=== PATIENT | male | born 1950 | race Caucasian/White ===

== ENCOUNTER 2020-05-21 00:33 | Day surgery (SDC) | payer MEDICARE ==
[~2020-05-21 00:33] MED LIST: ATOR10 PO; CITA10S PO; ENAL5 PO; GLYMET5 PO; IBUP800 PO; PROP10 PO
[2020-05-21] MEDS ORDERED: THERA-D2000 UNIT PO (15:12)
[2020-05-21] MEDS ORDERED: GLIM4 PO (15:13)
[2020-05-21] MEDS ORDERED: SITA100T2 PO (15:14)
[2020-05-21] MEDS ORDERED: CYCL10 PO (15:32)
[2020-05-21] MEDS ORDERED: CITA20 PO (15:33)
[2020-05-21] MEDS ORDERED: METF500 PO (15:34)
[2020-05-21] MEDS ORDERED: ATOR10 PO (15:35)
[2020-05-21] MEDS ORDERED: PIOG30 PO (15:38)
[2020-05-21] MEDS ORDERED: ENAL10 PO (15:38)
[2020-05-21] MEDS ORDERED: IBUP800 PO (15:38)
--- NOTE | 2020-05-21 15:43 | NUR ---
IV PLACED AT DR. MILLER'S OFFICE THIS MORNING.
== END 2020-05-21 17:50 | disposition home or self-care (01) ==
LOC: ATC 00:33
DX: D69.6 Thrombocytopenia, unspecified (principal); E11.9 Type 2 diabetes mellitus without complications; F17.200 Nicotine dependence, unspecified, uncomplicated; Z79.84 Long term (current) use of oral hypoglycemic drugs; Z88.0 Allergy status to penicillin
CPT/HCPCS: 36415; 36430; 86850; 86900; 86901; 86923; J7050; P9016

== ENCOUNTER 2020-06-09 10:26 | Observation (INO) | payer MEDICARE ==
[~2020-06-09] VITALS: Ht 175.3 cm; Wt 118.3 kg
[~2020-06-09 10:26] MED LIST changes: +CITA20 PO; +CYCL10 PO; +ENAL10 PO; -ENAL5 PO; +GLIM4 PO; +METF500 PO; +PIOG30 PO; +SITA100T2 PO; +THERA-D2000 UNIT PO
[2020-06-09 11:30] LABS: Hemoglobin 7.7 g/dL (13.5-17.5); Mean Corpuscular HGB 31.6 pg (26.0-34.0); Mean Corpuscular HGB Conc 33.5 g/dL (31.5-36.5); Mean Corpuscular Volume 94 fL (80-100); Mean Platelet Volume 10.3 fL (9.1-12.4); NRBC ABSOLUTE 0.25 K/mm3 (0.00-0.02); NRBC Auto 8.9 /100 WBC (0.0-0.2); RDW Coefficient Variation 18.5 % (11.7-14.2); RDW Standard Deviation 55.8 fL (35.1-46.3); Red Blood Cell Count 2.44 M/mm3 (4.30-5.90)
[2020-06-09 11:34] LABS: Alanine Aminotransfer (ALT/SGP 18 U/L (12-78); Albumin, Blood 3.5 g/dL (3.4-5.0); Albumin/Globulin Ratio 1.1 (0.8-1.8); Alk Phos 84 U/L (50-136); Anion Gap 8 mmol/L (6-16); Aspartate Aminotrans (AST/SGOT 14 U/L (12-37); Bilirubin, Total 1.5 mg/dL (0.1-1.0); Blood Urea Nitrogen 19 mg/dL (8-24); Bun/Creatinine Ratio 24.1 (12.0-20.0); CO2, Blood 22 mmol/L (21-32); Calcium, Blood 8.2 mg/dL (8.5-10.1); Chloride, Blood 101 mmol/L (98-108); Creatinine, Blood 0.79 mg/dL (0.60-1.20); Globulin, Blood 3.2 g/dL (2.2-4.0); Glomerular Filtration Rate >60 (60-); Glucose, Blood 266 mg/dL (70-99); Potassium, Blood 4.6 mmol/L (3.5-5.5); Sodium, Blood 131 mmol/L (136-145); Total Protein, Blood 6.7 g/dL (6.4-8.2); Troponin I <0.015 ng/mL (0.000-0.040)
[2020-06-09 11:37] LABS: Platelet Count 33 K/mm3 (150-400)
[2020-06-09 11:43] LABS: BAND PERCENT MAN 8 % (0-8); BASOPHILS ABSOLUTE MAN 0.02 K/mm3 (0.00-0.23); BASOPHILS PERCENT MAN 1 % (0-2); EOSINOPHILS PERCENT MAN 0 % (0-6); LYMPHOCYTES ABSOLUTE MAN 1.42 K/mm3 (0.84-5.20); LYMPHOCYTES PERCENT MAN 51 % (21-46); MONOCYTES ABSOLUTE MAN 0.02 K/mm3 (0.16-1.47); MONOCYTES PERCENT MAN 1 % (4-13); MYELOCYTE ABSOLUTE MAN 0.02 K/mm3 (0.00-0.00); MYELOCYTE PERCENT MAN 1 % (0-0); NEUTROPHILS ABSOLUTE MAN 1.28 K/mm3 (1.96-9.15); SEG NEUTROPHILS PERCENT MAN 38 % (41-73); TOTAL CELLS COUNTED 100
[2020-06-09] MEDS ORDERED: PEPCID40 MG PO (17:11)
--- NOTE | 2020-06-09 19:34 | NUR ---
END OF SHIFT SUMMARY: PATIENT ARRIVED TO UNIT ABOUT 18:15. REPORT RECEIVED FROM ALEXANDREA MCHUGH IN ED. PATIENT ALERT AND ORIENTED X4. PATIENT ACCOMPANIED BY HIS . PATIENT HAS MARKED SOB WITH EXERTION. PATIENT AND REPORT INCREASING WEAKNESS RELATED TO CHEMO AND LEUKEMIA. PATIENT REPORTS LAST CHEMO WAS LAST TUESDAY (06/05/20). PATIENT REPORTS THAT TOMORROW HE IS SUPPOSED TO HAVE A STRESS TEST. NO ORDER PLACED YET. NOTIFIED MANAGER STRATEGIC ALLIANCES RN. PATIENT AWARE OF CAFFEINE RESTRICTION AND NPO STATUS STARTING TONIGHT. PATIENT DENIES CHEST PAIN, TIGHTNESS OR DISCOMFORT AT THIS TIME. PATIENT DENIES NUMBNESS IN UPPER EXTREMITIES. PATIENT RESTING COMFORTABLY IN THE BED. NO APPARENT SIGNS OF DISTRESS OR DISCOMFORT.
--- NOTE | 2020-06-10 05:50 | NUR ---
SHIFT SUMMARY: VSS. AFEB. AAOX4. ABLE TO COMMUNICATE NEEDS. MEDX1 OVERNIGHT FOR HEADACHE. PT DENIES CHEST PAIN OR SOB. PT STATES CHEST PAIN AND EXERTIONAL DYSPNEA ONLY OCCUR W/ ACTIVITY. HAS REMAINED ON BEDREST OVERNIGHT. CURRENTLY NPO IN PREPARATION FOR POSSIBLE STRESS TEST TODAY. NO ACUTE OVERNIGHT EVENTS. WCTM.
[2020-06-10 07:24] LABS: Hematocrit 21.8 % (37.0-53.0); Hemoglobin 7.3 g/dL (13.5-17.5); Mean Corpuscular HGB 31.5 pg (26.0-34.0); Mean Corpuscular HGB Conc 33.5 g/dL (31.5-36.5); Mean Corpuscular Volume 94 fL (80-100); Mean Platelet Volume 10.6 fL (9.1-12.4); NRBC ABSOLUTE 0.26 K/mm3 (0.00-0.02); NRBC Auto 10.8 /100 WBC (0.0-0.2); RDW Coefficient Variation 18.8 % (11.7-14.2); RDW Standard Deviation 55.8 fL (35.1-46.3); Red Blood Cell Count 2.32 M/mm3 (4.30-5.90); White Blood Cell Count 2.41 K/mm3 (4.00-11.30)
[2020-06-10 07:30] LABS: Platelet Count 28 K/mm3 (150-400)
--- NOTE | 2020-06-10 10:28 | NUR ---
PT HAVING RESTING PORTION OF STRESS TEST TODAY, GOING DOWN FOR PICTURES NOW
--- NOTE | 2020-06-10 17:31 | NUR ---
SUMMARY PT RESTING IN BED QUIETLY, WAKES EASILY, PT HAD THE RESTING PORTION OF THE STRESS TEST TODAY, VICK WELL, SPOUSE HAS BEEN IN TO VISIT, PT HAS DENIED ANY CHEST PAIN T/O THE DAY, PLAN FOR STRESS PORTION OF TEST TOMORROW MORNING, PT TO HAVE NO CAFFEINE AFTER 8PM AND NPO AFTER 3 AM, PER [facility], PLAN FOR TEST AROUND 7:30 AM, PT HOPEFUL TO GO HOME AFTER TEST, WILL CONT TO MONITOR
[2020-06-11 05:19] LABS: Hematocrit 21.4 % (37.0-53.0); Hemoglobin 7.2 g/dL (13.5-17.5); Mean Corpuscular HGB 31.9 pg (26.0-34.0); Mean Corpuscular HGB Conc 33.6 g/dL (31.5-36.5); Mean Corpuscular Volume 95 fL (80-100); Mean Platelet Volume 11.1 fL (9.1-12.4); NRBC ABSOLUTE 0.25 K/mm3 (0.00-0.02); NRBC Auto 9.4 /100 WBC (0.0-0.2); RDW Coefficient Variation 19.4 % (11.7-14.2); RDW Standard Deviation 56.6 fL (35.1-46.3); Red Blood Cell Count 2.26 M/mm3 (4.30-5.90); White Blood Cell Count 2.66 K/mm3 (4.00-11.30)
[2020-06-11 05:28] LABS: Platelet Count 27 K/mm3 (150-400)
[2020-06-11 05:34] LABS: Anion Gap 5 mmol/L (6-16); Blood Urea Nitrogen 17 mg/dL (8-24); Bun/Creatinine Ratio 25.6 (12.0-20.0); CO2, Blood 26 mmol/L (21-32); Calcium, Blood 8.2 mg/dL (8.5-10.1); Chloride, Blood 102 mmol/L (98-108); Creatinine, Blood 0.66 mg/dL (0.60-1.20); Glomerular Filtration Rate >60 (60-); Glucose, Blood 197 mg/dL (70-99); Potassium, Blood 4.2 mmol/L (3.5-5.5); Sodium, Blood 133 mmol/L (136-145)
--- NOTE | 2020-06-11 06:38 | NUR ---
SHIFT SUMMARY PT IS A 69 Y/O MALE, ADMITTED FOR CP. HE IS A&O X 4, INDEPENDENT IN THE ROOM. NO C/O CHEST PAIN OR PRESSURE, SOB OR NAUSEA. TELE SHOWED NSR/ST IN THE 90-100S. VITAL SIGNS STABLE. PT NPO SINCE 0300 FOR SECOND HALF OFF STRESS TEST THIS AM. NO ACUTE CHANGES IN PT CONDITION NOTED. WILL CONTINUE TO MONITOR AND TREAT PER EMAR UNTIL HAND OFF TO DAY SHIFT RN.
--- NOTE | 2020-06-11 17:15 | NUR ---
SUMMARY PT RESTING IN BED VISITING WITH HIS , PT HAD A STRESS TEST TODAY, IT WAS ABNORMAL, CARDIOLOGY HAS BEEN CONSULTED, PLAN TO GIVE 2 UNITS PRBCS AND POSSIBLE ANGIO OUTPATIENT, PT HAS BEEN PLEASANT AND COOPERATIVE WITH CARE, UP TO THE SHOWER WITH ASSISTANCE, PT HAS DYSPNEA WITH ANY ACTIVITY, VSS, WILL CONTINUE TO MONITOR
--- NOTE | 2020-06-11 18:36 | NUR ---
1ST UNIT OF PRBCS STARTED
--- NOTE | 2020-06-12 | NUR ---
PT tolerated transfusion of 2 units PRBC well. Said he needed blood transfusion several weeks ago. CO headache since he started chemotherapy several weeks ago for leukemia
--- NOTE | 2020-06-12 04:58 | NUR ---
PT resting through night snores after 2 units PRBC transfused. Uses urinal voids frequently. Denies chest pain had abnormal cardiac stress test but unable to proceed with angioplasty without input from oncoligest DR Pena who has been giving PT chemotherapy for leukemia.
[2020-06-12 09:22] LABS: Hematocrit 29.5 % (37.0-53.0); Hemoglobin 9.9 g/dL (13.5-17.5); Mean Corpuscular HGB 30.5 pg (26.0-34.0); Mean Corpuscular HGB Conc 33.6 g/dL (31.5-36.5); Mean Corpuscular Volume 91 fL (80-100); Mean Platelet Volume 11.5 fL (9.1-12.4); NRBC ABSOLUTE 0.35 K/mm3 (0.00-0.02); NRBC Auto 11.9 /100 WBC (0.0-0.2); RDW Coefficient Variation 19.5 % (11.7-14.2); RDW Standard Deviation 54.9 fL (35.1-46.3); Red Blood Cell Count 3.25 M/mm3 (4.30-5.90); White Blood Cell Count 2.94 K/mm3 (4.00-11.30)
[2020-06-12 09:24] LABS: Platelet Count 30 K/mm3 (150-400)
[2020-06-12] MEDS ORDERED: THERA-D2000 UNIT PO (12:20)
[2020-06-12] MEDS ORDERED: Isosorbide Mono30 MG PO (12:21)
[2020-06-12] MEDS ORDERED: METO25ER PO (12:28)
--- NOTE | 2020-06-12 14:29 | NUR ---
discharged: home with , pushed pt's wc out to family car, assisted in, REMOVED: iv and tele, no issues with iv, returned tele to pcu, REVIEWED: stay, medication, discharge instructions and follow up appointments
[2020-08-14] MEDS ORDERED: Isosorbide Mono30 MG PO (15:17)
== END 2020-06-12 13:43 | disposition home health service (06) ==
LOC: ER 10:26 → MEDS 10:27
PROVIDERS: Emergency Medicine; ADMIT Internal Medicine
DX: R07.89 Other chest pain (principal); R06.09 Other forms of dyspnea; D64.9 Anemia, unspecified; D69.6 Thrombocytopenia, unspecified; C95.90 Leukemia, unspecified not having achieved remission; E11.9 Type 2 diabetes mellitus without complications; I10 Essential (primary) hypertension; R94.39 Abnormal result of other cardiovascular function study; I35.0 Nonrheumatic aortic (valve) stenosis; E66.9 Obesity, unspecified; Z68.38 Body mass index [BMI] 38.0-38.9, adult; Z88.0 Allergy status to penicillin; Z87.891 Personal history of nicotine dependence; Z79.84 Long term (current) use of oral hypoglycemic drugs
CPT/HCPCS: 36415; 36430; 71046; 71260; 78452; 80048; 80053; 82728; 82947; 83540; 83550; 84484; 85025; 85027; 86850; 86900; 86901; 86923; 93005; 93010; 93017; 93306; 99285-25; A9270; A9500; G0378; J0706; J2785; P9016; Q9967

== ENCOUNTER 2020-07-02 08:00 | Day surgery (SDC) | payer MEDICARE ==
[~2020-07-02 08:00] MED LIST changes: +Isosorbide Mono30 MG PO; +METO25ER PO; +PEPCID40 MG PO
[2020-08-14] MEDS ORDERED: Isosorbide Mono30 MG PO (15:17)
== END 2020-07-02 23:59 | disposition home or self-care (01) ==
LOC: ATC 08:00
DX: D46.B Refractory cytopenia with multilineage dysplasia and ring sideroblasts (principal); E11.9 Type 2 diabetes mellitus without complications; Z79.84 Long term (current) use of oral hypoglycemic drugs; Z87.891 Personal history of nicotine dependence
CPT/HCPCS: 36415; 36430; 86850; 86900; 86901; 86923; J7050; P9016

== ENCOUNTER 2020-07-22 00:13 | Day surgery (SDC) | payer MEDICARE ==
[2020-07-23] MEDS ORDERED: CYCL10 PO (09:24)
[2020-07-23] MEDS ORDERED: Aspir 8181 MG PO (11:02)
[2020-08-14] MEDS ORDERED: Isosorbide Mono30 MG PO (15:17)
== END 2020-07-23 22:59 | disposition home or self-care (01) ==
LOC: ATC 00:13
DX: D46.9 Myelodysplastic syndrome, unspecified (principal)
CPT/HCPCS: J2250; J3010; J7030; J7050

== ENCOUNTER 2020-07-23 08:14 | Day surgery (SDC) | payer MEDICARE ==
[~2020-07-23] VITALS: Ht 175.3 cm; Wt 117.9 kg
[2020-07-23] MEDS ORDERED: CYCL10 PO (09:24)
[2020-07-23] MEDS ORDERED: Aspir 8181 MG PO (11:02)
--- NOTE | 2020-07-23 13:13 | NUR ---
DISCHARGE GONE OVER WITH PT, PT VERBALIZES UNDERSTANDING. PT VERBALLY AND VISIBLY UPSET OF OUTCOME OF PROCEDURE. REASSURANCE PROVIDED TO PT THAT THE DR'S INVOLVED WANT WHAT'S BEST FOR HIM AND THAT THEY ARE COMMUNICATING WITH ONE ANOTHER. PT ACCEPTABLE OF THAT RESPONSE.
--- NOTE | 2020-07-23 13:23 | NUR ---
PT UP AND GETTING DRESSED AT THIS TIME.
--- NOTE | 2020-07-23 13:43 | NUR ---
PT DRESSED WITH MINIMAL ASSIST. R RADIAL SITE CLEANSED, CLOTH DOT PLACED. NO BLEEDING NOTED. SALINE LOCK REMOVED WITH CATHETER INTACT. PT TO PRIVATE VEHICLE PER W/C WITH ONE STAFF. DISCHARGE INSTRUCTIONS ALSO GONE OVER WITH , VERBALIZES UNDERSTANDING.
[2020-08-14] MEDS ORDERED: Isosorbide Mono30 MG PO (15:17)
== END 2020-07-23 14:04 | disposition home or self-care (01) ==
LOC: MHTC 08:14
DX: I25.118 Atherosclerotic heart disease of native coronary artery with other forms of angina pectoris (principal); I11.0 Hypertensive heart disease with heart failure; I50.9 Heart failure, unspecified; E66.9 Obesity, unspecified; E11.9 Type 2 diabetes mellitus without complications; Z88.0 Allergy status to penicillin; Z79.84 Long term (current) use of oral hypoglycemic drugs; Z87.891 Personal history of nicotine dependence
CPT/HCPCS: 76937; 93454; 99152; 99153; A9270; C1769; C1894; J1644; J2250; J3010; J7030; J7050; Q9967

== ENCOUNTER 2020-08-13 00:56 | Day surgery (SDC) | payer MEDICARE ==
[2020-08-12 15:30] LABS: Hematocrit 27.6 % (37.0-53.0); Hemoglobin 9.1 g/dL (13.5-17.5); Mean Corpuscular HGB 32.2 pg (26.0-34.0); Mean Corpuscular Volume 98 fL (80-100); NRBC ABSOLUTE 0.28 K/mm3 (0.00-0.02); NRBC Auto 4.5 /100 WBC (0.0-0.2); RDW Coefficient Variation 22.7 % (11.7-14.2); RDW Standard Deviation 78.4 fL (35.1-46.3); Red Blood Cell Count 2.83 M/mm3 (4.30-5.90); White Blood Cell Count 6.27 K/mm3 (4.00-11.30)
[2020-08-12 15:32] LABS: International Normalized Ratio 1.11; Prothrombin Time Results 11.9 Sec (9.7-11.5)
[2020-08-12 15:48] LABS: Anion Gap 7 mmol/L (6-16); Blood Urea Nitrogen 22 mg/dL (8-24); Bun/Creatinine Ratio 31.4 (12.0-20.0); CO2, Blood 21 mmol/L (21-32); Calcium, Blood 8.2 mg/dL (8.5-10.1); Chloride, Blood 105 mmol/L (98-108); Glomerular Filtration Rate >60 (60-); Glucose, Blood 206 mg/dL (70-99); Potassium, Blood 4.3 mmol/L (3.5-5.5); Sodium, Blood 133 mmol/L (136-145)
[2020-08-12 16:07] LABS: Platelet Count 31 K/mm3 (150-400)
[2020-08-12 17:04] LABS: BAND PERCENT MAN 4 % (0-8); BASOPHILS ABSOLUTE MAN 0.12 K/mm3 (0.00-0.23); BASOPHILS PERCENT MAN 2 % (0-2); EOSINOPHILS ABSOLUTE MAN 0.31 K/mm3 (0.00-0.68); EOSINOPHILS PERCENT MAN 5 % (0-6); LYMPHOCYTES ABSOLUTE MAN 1.75 K/mm3 (0.84-5.20); LYMPHOCYTES PERCENT MAN 28 % (21-46); METAMYELOCYTE ABSOLUTE MAN 0.12 K/mm3 (0.00-0.00); METAMYELOCYTE PERCENT MAN 2 % (0-0); MONOCYTES ABSOLUTE MAN 0.12 K/mm3 (0.16-1.47); MONOCYTES PERCENT MAN 2 % (4-13); NEUTROPHILS ABSOLUTE MAN 3.82 K/mm3 (1.96-9.15); SEG NEUTROPHILS PERCENT MAN 57 % (41-73); TOTAL CELLS COUNTED 100
[~2020-08-13 00:56] MED LIST changes: +Aspir 8181 MG PO
--- NOTE | 2020-08-13 08:30 | NUR ---
CALLED DR SÁNCHEZ OFFICE AND NOTIFIED THIS THAT BLOOD BANK HAS ONLY 1 UNIT OF PLATELLETS FOR THIS PATIENT.
[2020-08-14] MEDS ORDERED: Isosorbide Mono30 MG PO (15:17)
== END 2020-08-13 16:17 | disposition home or self-care (01) ==
LOC: ATC 00:56
DX: D46.9 Myelodysplastic syndrome, unspecified (principal)
CPT/HCPCS: 36430; 80048; 85007; 85027; 85610; 86850; 86900; 86901; 86923; J7050; P9053

== ENCOUNTER 2020-08-15 08:26 | Observation (INO) | payer MEDICARE ==
[~2020-08-15] VITALS: Ht 175.3 cm; Wt 109.1 kg
--- NOTE | 2020-08-15 11:52 | NUR ---
PT BACK TO RECOVER ROOM MID PROCEDURE DUE TO AN EMERGENCY IN THE ER. PT WITH SHEATH IN PLACE IN THE R RAD CONNECTED TO A PRESSURE BAG. NO BLEEDING, OOZING, HEMATOMA OR SWELLING NOTED AT ACCESS SITE. VSS REMAIN STABLE AT THIS TIME. WILL CONTINUE TO MONITOR.
--- NOTE | 2020-08-15 13:01 | NUR ---
PT LAYING IN BED. SHEATH STILL IN PLACE IN R RAD. PT IS EXTREMELY UNHAPPY AT THIS TIME. PT CALLING STAFF "ASSHOLES" AND FLIPPING STAFF OFF. INFORMED PT THE NAME CALLING IS NOT NECESSARY AND STATES "I DONT GIVE A FUCK. A BUNCH OF ASSHOLES AROUND HERE." VSS AT THIS TIME. PT DOES NOT STATE OR INFORM THIS RN OF ANY CONCERNS OTHER THEN NOT BEING HAPPY ABOUT BEING TAKEN OFF THE TABLE AND HAVING TO WAIT LONG. WILL CONTINUE TO MONITOR.
--- NOTE | 2020-08-15 14:44 | NUR ---
PT BACK TO PROCEDURE ROOM
--- NOTE | 2020-08-15 14:45 | NUR ---
SECOND DOSE OF 1G ANCEF INFUSING ORDERED. PT CONTINUES TO REPORT EXTREME PAIN IN HIS HEAD. PT IS SITTING UP IN RECLINER AND ROCKING BACK AND FORTH. PT STATES HEADACHE CAME ON SUDDENLY. PT MEDICATED FOR PAIN ABLE 15MINS AGO. WILL CONTINUE TO MONITOR. VSS. IF PAIN DOESNT IMPROVE WILL INFORM MD.
--- NOTE | 2020-08-15 16:50 | NUR ---
pt arrived to room on own bed, a/o x 4, SOB r/t post-procedure medication; medical charge entry specialist Frank in room with this rn. TI band R wrist shows no bruising, no firmness, cap refill to R fingers <3 seconds, finger baseline color and warmth pt oriented to room/call light, provided PO intake. Post-procuedure VS commended and stable
--- NOTE | 2020-08-15 20:26 | NUR ---
ASSUMED CARE PT IS ALERT AND ORIENTED. PT'S VITALS ARE STABLE AND IS ON ROOM AIR WITH SATS ABOVE 92%. PT REPORTED CHEST PAIN AT 1948; NOW WHEN REASSED PT RREPORT DECREASE OF 1/10. DEFLATION OF 1ML DONE. SITE APPEARS DRY AND INTACT. PULSES AND CAP REFILL WNL.
--- NOTE | 2020-08-15 21:56 | NUR ---
CALLED DR CLAY TO UPDATE REGARDING PT'S CHEST PAIN AND TROP. MENTIONED THAT PT REFUSED INSULIN AND THAT PT STATES THAT HE WILL RESUME BLOOD SUGAR MEDICATION AND TREATMENT AT HOME. "DOES NOT WANT TO BE POKED ANYMORE." GAVE VERBAL ORDER TO DC A[facility]S MED AND CHEMBG.
--- NOTE | 2020-08-16 05:37 | NUR ---
SHIFT SUMMARY PT IS ALERT AND ORIENTED X4. PT IS AGITATED MOST TIMES. VITALS ARE STABLE AND THERE HAVE BEEN NO ACUTE CHANGES. PT HAD CHEST PAIN OF 6/[address] ORDERED NITRO OINTMENT SINCE APPLIED PER EMAR PT HAS DENIED CHEST PAIN. TR BAND IS OFF AND SITE IS CDI. PT REFUSED ORDERED INSULIN WAS VERY UPSET ABOUT BEING "POKED" NOTIFIED THAT HE WILL RESUME HIS BLOOD SUGAR TREATMENT WHEN HE GETS HOME; DR CLAY WAS NOTOFIED. PT USES URINAL AT BEDSIDE. USES CALL LIGHT APPROP.
[2020-08-16 06:16] LABS: Hemoglobin 7.6 g/dL (13.5-17.5); Mean Corpuscular HGB 31.3 pg (26.0-34.0); Mean Corpuscular Volume 95 fL (80-100); Mean Platelet Volume 9.9 fL (9.1-12.4); NRBC ABSOLUTE 0.36 K/mm3 (0.00-0.02); NRBC Auto 8.2 /100 WBC (0.0-0.2); RDW Coefficient Variation 22.8 % (11.7-14.2); RDW Standard Deviation 76.6 fL (35.1-46.3); Red Blood Cell Count 2.43 M/mm3 (4.30-5.90); White Blood Cell Count 4.37 K/mm3 (4.00-11.30)
[2020-08-16 06:22] LABS: Platelet Count 46 K/mm3 (150-400)
[2020-08-16 06:40] LABS: Anion Gap 9 mmol/L (6-16); Blood Urea Nitrogen 16 mg/dL (8-24); Bun/Creatinine Ratio 24.5 (12.0-20.0); CO2, Blood 23 mmol/L (21-32); Calcium, Blood 8.2 mg/dL (8.5-10.1); Chloride, Blood 102 mmol/L (98-108); Creatinine, Blood 0.65 mg/dL (0.60-1.20); Glomerular Filtration Rate >60 (60-); Glucose, Blood 191 mg/dL (70-99); Potassium, Blood 3.9 mmol/L (3.5-5.5); Sodium, Blood 134 mmol/L (136-145)
[2020-08-16 07:24] LABS: BAND PERCENT MAN 6 % (0-8); BASOPHILS ABSOLUTE MAN 0.04 K/mm3 (0.00-0.23); BASOPHILS PERCENT MAN 1 % (0-2); BLASTS PERCENT MAN 3 % (0-0); EOSINOPHILS PERCENT MAN 0 % (0-6); LYMPHOCYTES ABSOLUTE MAN 1.61 K/mm3 (0.84-5.20); LYMPHOCYTES PERCENT MAN 37 % (21-46); METAMYELOCYTE ABSOLUTE MAN 0.13 K/mm3 (0.00-0.00); METAMYELOCYTE PERCENT MAN 3 % (0-0); MONOCYTES PERCENT MAN 7 % (4-13); MYELOCYTE ABSOLUTE MAN 0.13 K/mm3 (0.00-0.00); MYELOCYTE PERCENT MAN 3 % (0-0); NEUTROPHILS ABSOLUTE MAN 2.01 K/mm3 (1.96-9.15); SEG NEUTROPHILS PERCENT MAN 40 % (41-73); TOTAL CELLS COUNTED 100
[2020-08-16] MEDS ORDERED: CLOP75 PO (13:27)
--- NOTE | 2020-08-16 14:31 | NUR ---
TRANSFUSION PT HAD STENTS PLACED DURING ANGIO YESTERDAY. PT HAS LOW PLATELETS AND HgB TODAY 08/16/20. [facility] WOULD LIKE THE PT TO HAVE 2 UNITS PRBC AND 2 UNITS PLATELETS PRIOR TO DISCHARGE TODAY. 1 UNIT OF PLATELETS HAS TRANSFUSED AND THE 1ST UNIT OF PRBC IS ALMOST COMPLETE
[2020-08-16 17:53] LABS: Hemoglobin 10.4 g/dL (13.5-17.5); Mean Corpuscular HGB 30.4 pg (26.0-34.0); Mean Corpuscular HGB Conc 33.5 g/dL (31.5-36.5); Mean Corpuscular Volume 91 fL (80-100); Mean Platelet Volume 10.8 fL (9.1-12.4); NRBC ABSOLUTE 0.58 K/mm3 (0.00-0.02); NRBC Auto 10.8 /100 WBC (0.0-0.2); Platelet Count 74 K/mm3 (150-400); RDW Coefficient Variation 21.6 % (11.7-14.2); Red Blood Cell Count 3.42 M/mm3 (4.30-5.90); White Blood Cell Count 5.36 K/mm3 (4.00-11.30)
[2020-08-16 18:11] LABS: BAND PERCENT MAN 8 % (0-8); BASOPHILS PERCENT MAN 0 % (0-2); BLASTS PERCENT MAN 1 % (0-0); EOSINOPHILS ABSOLUTE MAN 0.05 K/mm3 (0.00-0.68); EOSINOPHILS PERCENT MAN 1 % (0-6); LYMPHOCYTES % ATYPICAL MANUAL 3 % (0-0); LYMPHOCYTES ABSOLUTE MAN 2.19 K/mm3 (0.84-5.20); LYMPHOCYTES PERCENT MAN 38 % (21-46); METAMYELOCYTE ABSOLUTE MAN 0.21 K/mm3 (0.00-0.00); METAMYELOCYTE PERCENT MAN 4 % (0-0); MONOCYTES ABSOLUTE MAN 0.21 K/mm3 (0.16-1.47); MONOCYTES PERCENT MAN 4 % (4-13); MYELOCYTE ABSOLUTE MAN 0.05 K/mm3 (0.00-0.00); MYELOCYTE PERCENT MAN 1 % (0-0); NEUTROPHILS ABSOLUTE MAN 2.57 K/mm3 (1.96-9.15); SEG NEUTROPHILS PERCENT MAN 40 % (41-73); TOTAL CELLS COUNTED 100
--- NOTE | 2020-08-16 18:35 | NUR ---
DISCHARGE PT WAS DISCHARGED TODAY AT APPROXIMATELY 1725. PT WAS ESCORTED OUT VIA WHEELCHAIR ACCOMPANIED BY ANDREA SOLANO AND HIS SPOUSE. PT WAS GIVEN INSTRUCTION REGARDING POST ANGIO RADIAL SITE CARE. PT LEFT WITH ARM BOARD IN PLACE AND AGREED TO INSTRUCTIONS. PT RECEIVED 1 UNIT PLATELETS; 2ND UNIT WAS UNAVAILABLE IN THE BANK. PT ALSO RECEIVED 2 UNITS PRBC. VS STABLE ON DISCHARGE. PT ON RA AND DENIED CHEST PAIN AT THIS TIME
== END 2020-08-16 17:26 | disposition home or self-care (01) ==
LOC: MHTC 08:26 → PCU 08:30 → MHTC 09:00 → PCU 15:52 → MHTC 08-16 17:26
PROVIDERS: Internal Medicine Cardiovascular Disease
DX: I25.118 Atherosclerotic heart disease of native coronary artery with other forms of angina pectoris (principal); R06.02 Shortness of breath; T45.515A Adverse effect of anticoagulants, initial encounter; E11.9 Type 2 diabetes mellitus without complications; I10 Essential (primary) hypertension; E78.5 Hyperlipidemia, unspecified; D64.9 Anemia, unspecified; C95.90 Leukemia, unspecified not having achieved remission; Z92.21 Personal history of antineoplastic chemotherapy; Z79.82 Long term (current) use of aspirin; Z79.84 Long term (current) use of oral hypoglycemic drugs; Z86.718 Personal history of other venous thrombosis and embolism
CPT/HCPCS: 36415; 36430; 76937; 80048; 82947; 84484; 85025; 85347; 86850; 86900; 86901; 86923; 93005; 93010; 96374; 99152; 99153; A9270; C1725; C1769; C1874; C1887; C1894; C9600; G0378; J0360; J0883; J1644; J1815; J1940; J2250; J2370; J3010; J7030; J7040; J7050; P9016; P9053; Q9967

== ENCOUNTER 2020-09-09 04:12 | Day surgery (SDC) | payer MEDICARE ==
[~2020-09-09 04:12] MED LIST changes: +CLOP75 PO
== END 2020-09-09 15:10 | disposition home or self-care (01) ==
LOC: ATC 04:12 → EDSTATUS 14:00 → ATC 15:10
DX: D46.9 Myelodysplastic syndrome, unspecified (principal); E11.9 Type 2 diabetes mellitus without complications; Z87.891 Personal history of nicotine dependence; Z79.84 Long term (current) use of oral hypoglycemic drugs; Z88.0 Allergy status to penicillin
CPT/HCPCS: 36430; 86353; 86850; 86900; 86901; J7050; P9035

== ENCOUNTER 2020-09-17 01:58 | Day surgery (SDC) | payer MEDICARE | END 2020-09-17 12:44 | disposition home or self-care (01) | LOC: ATC 01:58 | DX: D46.9 Myelodysplastic syndrome, unspecified (principal); D69.6 Thrombocytopenia, unspecified; E11.9 Type 2 diabetes mellitus without complications; Z87.891 Personal history of nicotine dependence; Z92.21 Personal history of antineoplastic chemotherapy; Z79.84 Long term (current) use of oral hypoglycemic drugs; Z88.0 Allergy status to penicillin | CPT/HCPCS: 36415; 36430; 86850; 86900; 86901; 86923; J7050; P9016; P9035 ==

== ENCOUNTER 2020-09-30 10:42 | Day surgery (SDC) | payer MEDICARE | END 2020-09-30 17:19 | disposition home or self-care (01) | LOC: ATC 10:42 → EDSTATUS 11:03 → ATC 17:19 | DX: D46.9 Myelodysplastic syndrome, unspecified (principal); E11.9 Type 2 diabetes mellitus without complications; Z87.891 Personal history of nicotine dependence; Z88.0 Allergy status to penicillin | CPT/HCPCS: 36415; 36430; 86900; 86901; J7050; P9035 ==

== ENCOUNTER → 2020-10-14 | Outpatient (CLI) | payer MEDICARE ==
[2020-10-14 15:18] LABS: Alanine Aminotransfer (ALT/SGP 31 U/L (12-78); Albumin, Blood 3.4 g/dL (3.4-5.0); Albumin/Globulin Ratio 1.3 (0.8-1.8); Alk Phos 70 U/L (50-136); Anion Gap 9 mmol/L (6-16); Aspartate Aminotrans (AST/SGOT 34 U/L (12-37); Bilirubin, Total 2.2 mg/dL (0.1-1.0); Blood Urea Nitrogen 24 mg/dL (8-24); Bun/Creatinine Ratio 33.3 (12.0-20.0); CO2, Blood 22 mmol/L (21-32); Calcium, Blood 7.7 mg/dL (8.5-10.1); Chloride, Blood 106 mmol/L (98-108); Creatinine, Blood 0.72 mg/dL (0.60-1.20); Globulin, Blood 2.7 g/dL (2.2-4.0); Glomerular Filtration Rate >60 (60-); Glucose, Blood 258 mg/dL (70-99); Phosphorus, Blood 3.8 mg/dL (2.5-4.9); Potassium, Blood 4.8 mmol/L (3.5-5.5); Sodium, Blood 137 mmol/L (136-145); Total Protein, Blood 6.1 g/dL (6.4-8.2)
== END | disposition home or self-care (01) ==
LOC: LAB SHORT 10:00
PROVIDERS: Internal Medicine Hematology & Oncology
DX: D46.9 Myelodysplastic syndrome, unspecified (principal)
CPT/HCPCS: 80053; 84100

== ENCOUNTER 2020-10-22 00:39 | Day surgery (SDC) | payer MEDICARE ==
[2020-10-22] MEDS ORDERED: ONDA4ODT MM (15:06)
== END 2020-10-22 16:31 | disposition home or self-care (01) ==
LOC: ATC 00:39
DX: D46.9 Myelodysplastic syndrome, unspecified (principal); J32.2 Chronic ethmoidal sinusitis; E11.9 Type 2 diabetes mellitus without complications; Z95.5 Presence of coronary angioplasty implant and graft; Z87.891 Personal history of nicotine dependence; Z79.84 Long term (current) use of oral hypoglycemic drugs; Z88.0 Allergy status to penicillin
CPT/HCPCS: 36415; 86850; 86900; 86901; 86923; J7050; P9016

== ENCOUNTER 2020-11-05 20:30 | Inpatient (IN) | payer MEDICARE ==
[~2020-11-05] VITALS: Ht 175.3 cm; Wt 121.2 kg
[~2020-11-05 20:30] MED LIST changes: +ATOR40TA PO; -METO25ER PO; +METO50ER PO; +ONDA4ODT MM
[2020-11-05 21:16] LABS: BASOPHILS ABSOLUTE AUTO 0.25 K/mm3 (0.00-0.23); BASOPHILS PERCENT AUTO 3 % (0-2); EOSINOPHILS ABSOLUTE AUTO 0.03 K/mm3 (0.00-0.68); EOSINOPHILS PERCENT AUTO 0 % (0-6); Hematocrit 18.5 % (37.0-53.0); Hemoglobin 6.1 g/dL (13.5-17.5); Mean Corpuscular HGB 32.4 pg (26.0-34.0); Mean Corpuscular Volume 98 fL (80-100); Mean Platelet Volume 11.6 fL (9.1-12.4); NRBC ABSOLUTE 5.79 K/mm3 (0.00-0.02); NRBC Auto 64.5 /100 WBC (0.0-0.2); RDW Coefficient Variation 23.2 % (11.7-14.2); RDW Standard Deviation 75.7 fL (35.1-46.3); Red Blood Cell Count 1.88 M/mm3 (4.30-5.90); White Blood Cell Count 8.98 K/mm3 (4.00-11.30)
[2020-11-05 21:18] LABS: IMMATURE GRAN ABSOLUTE AUTO 0.46 K/mm3 (0.00-0.10); IMMATURE GRAN PERCENT AUTO 5 % (0-1); LYMPHOCYTES ABSOLUTE AUTO 1.82 K/mm3 (0.84-5.20); LYMPHOCYTES PERCENT AUTO 20 % (21-46); MONOCYTES ABSOLUTE AUTO 3.96 K/mm3 (0.16-1.47); MONOCYTES PERCENT AUTO 44 % (4-13); NEUTROPHILS ABSOLUTE AUTO 2.46 K/mm3 (1.96-9.15); NEUTROPHILS PERCENT AUTO 27 % (41-73)
[2020-11-05 21:19] LABS: Platelet Count 29 K/mm3 (150-400)
[2020-11-05] MEDS ORDERED: NITR.4SL SL (21:27)
[2020-11-05] MEDS ORDERED: LORAZEPAM0.5 MG PO (21:29)
[2020-11-05 21:43] LABS: Alanine Aminotransfer (ALT/SGP 19 U/L (12-78); Albumin, Blood 3.1 g/dL (3.4-5.0); Albumin/Globulin Ratio 0.9 (0.8-1.8); Alk Phos 91 U/L (50-136); Anion Gap 13 mmol/L (6-16); Aspartate Aminotrans (AST/SGOT 72 U/L (12-37); Bilirubin, Total 3.1 mg/dL (0.1-1.0); Blood Urea Nitrogen 30 mg/dL (8-24); Bun/Creatinine Ratio 26.5 (12.0-20.0); CO2, Blood 16 mmol/L (21-32); Calcium, Blood 7.5 mg/dL (8.5-10.1); Chloride, Blood 104 mmol/L (98-108); Creatinine, Blood 1.13 mg/dL (0.60-1.20); Globulin, Blood 3.3 g/dL (2.2-4.0); Glomerular Filtration Rate >60 (60-); Glucose, Blood 153 mg/dL (70-99); Potassium, Blood 4.6 mmol/L (3.5-5.5); Sodium, Blood 133 mmol/L (136-145); Total Protein, Blood 6.4 g/dL (6.4-8.2); Troponin I 0.037 ng/mL (0.000-0.040)
[2020-11-05 22:04] LABS: BAND PERCENT MAN 3 % (0-8); BASOPHILS ABSOLUTE MAN 0.17 K/mm3 (0.00-0.23); BASOPHILS PERCENT MAN 2 % (0-2); EOSINOPHILS ABSOLUTE MAN 0.08 K/mm3 (0.00-0.68); EOSINOPHILS PERCENT MAN 1 % (0-6); LYMPHOCYTES PERCENT MAN 29 % (21-46); METAMYELOCYTE ABSOLUTE MAN 0.26 K/mm3 (0.00-0.00); METAMYELOCYTE PERCENT MAN 3 % (0-0); MONOCYTES ABSOLUTE MAN 2.78 K/mm3 (0.16-1.47); MONOCYTES PERCENT MAN 31 % (4-13); MYELOCYTE ABSOLUTE MAN 0.17 K/mm3 (0.00-0.00); MYELOCYTE PERCENT MAN 2 % (0-0); NEUTROPHILS ABSOLUTE MAN 2.87 K/mm3 (1.96-9.15); SEG NEUTROPHILS PERCENT MAN 29 % (41-73); TOTAL CELLS COUNTED 100
[2020-11-05 23:26] LABS: SARS-Cov-2 (COVID-19) PCR, MMC NEGATIVE (NEGATIVE)
[2020-11-06 02:56] LABS: Troponin I 1.19 ng/mL (0.000-0.040)
--- NOTE | 2020-11-06 05:56 | NUR ---
Care Note Pt complained of chest pain at approximately 0430. Pt described the pain as substernal, crushing pain that did not radiate elsewhere. RR increased to 35, all other vitals remained stable. 50 mcg fentanyl IV was given and did not relieve the pain, 1 subliingual nitroglycerin tab was given at 0440 and at 0450 pt stated that it had relieved the pain. A STAT CT for PE order was obtained and the pt departed the room for imaging at 0515.
[2020-11-06 06:38] LABS: Hematocrit 23.9 % (37.0-53.0); Mean Corpuscular HGB 32.1 pg (26.0-34.0); Mean Corpuscular HGB Conc 33.5 g/dL (31.5-36.5); Mean Corpuscular Volume 96 fL (80-100); Mean Platelet Volume 11.1 fL (9.1-12.4); NRBC ABSOLUTE 8.56 K/mm3 (0.00-0.02); NRBC Auto 73.5 /100 WBC (0.0-0.2); Platelet Count 62 K/mm3 (150-400); RDW Coefficient Variation 20.5 % (11.7-14.2); RDW Standard Deviation 61.9 fL (35.1-46.3); Red Blood Cell Count 2.49 M/mm3 (4.30-5.90); White Blood Cell Count 11.64 K/mm3 (4.00-11.30)
--- NOTE | 2020-11-06 06:38 | NUR ---
Shift Summary Pt was admitted via bed from ED, slide transfer with max assist x3. PRBCs were infusing on admit, an additional unit of PRBCs and 1 unit of Platelets were infused. Pt c/o chest pain that caused RR to increase while all other vital signs remained stable, one tab of sublingual nitroglycerin was given on two separate occasions that relieved the chest pain. The pt had episodes of anxiety that brought SOB and RR in the 30's. The pt has been in NSR for the duration with no changes. A CT was performed for possible PE.
[2020-11-06 06:55] LABS: Albumin, Blood 3.1 g/dL (3.4-5.0); Albumin/Globulin Ratio 0.9 (0.8-1.8); Bilirubin, Total 3.1 mg/dL (0.1-1.0); Bun/Creatinine Ratio 27.6 (12.0-20.0); Calcium, Blood 7.6 mg/dL (8.5-10.1); Creatinine, Blood 1.23 mg/dL (0.60-1.20); Globulin, Blood 3.3 g/dL (2.2-4.0); Potassium, Blood 4.8 mmol/L (3.5-5.5); Total Protein, Blood 6.4 g/dL (6.4-8.2)
[2020-11-06 07:04] LABS: BASOPHILS ABSOLUTE MAN 0.23 K/mm3 (0.00-0.23); BASOPHILS PERCENT MAN 2 % (0-2); EOSINOPHILS ABSOLUTE MAN 0.11 K/mm3 (0.00-0.68); EOSINOPHILS PERCENT MAN 1 % (0-6); LYMPHOCYTES ABSOLUTE MAN 5.12 K/mm3 (0.84-5.20); LYMPHOCYTES PERCENT MAN 44 % (21-46); MONOCYTES ABSOLUTE MAN 0.11 K/mm3 (0.16-1.47); MONOCYTES PERCENT MAN 1 % (4-13); NEUTROPHILS ABSOLUTE MAN 6.05 K/mm3 (1.96-9.15); SEG NEUTROPHILS PERCENT MAN 52 % (41-73); TOTAL CELLS COUNTED 100
--- NOTE | 2020-11-06 07:33 | NUR ---
pt yelling out for help, complaining of chest pain, is in distress, v.s. stable, except resp rate in the 30's, ntg given x3, with some relief, pt is calm now, still breathing hard, 1mg of morphine was given with a bit more relief, pt still in distress but calmer, v.s. remain stable, he is currently on 4 liters 02 via n/c, lungs have exp wheezing t/o, no cough noted, hrr, tele in place running sr to st per monitor, see strip, no edema noted, ppp+1, cap refill< 4 sec, vs stable, afebrile, clamy, btx4, abd large soft nontender, voids via urinal, skin is mottling on legs up to thighs, he states since chemo this has happened, no open areas, richa guevara, call light in reach. ekg completed, notified.
[2020-11-06 11:07] LABS: Hematocrit 24.8 % (37.0-53.0); Hemoglobin 8.3 g/dL (13.5-17.5)
[2020-11-06 11:43] LABS: Mean Platelet Volume 11.1 fL (9.1-12.4); Platelet Count 48 K/mm3 (150-400)
[2020-11-06 11:48] LABS: Troponin I 3.67 ng/mL (0.000-0.040)
--- NOTE | 2020-11-06 11:55 | NUR ---
NOTIFIED DR. ANDRADE OF PLTS DOWN TO 48 AND TROP UP TO 3.67, HE WILL CONTINUE TO PLAN FOR ANGIO TOMORROW. CALL LIGHT IN REACH.
[2020-11-06 14:24] LABS: Hematocrit 24.7 % (37.0-53.0); Hemoglobin 8.3 g/dL (13.5-17.5); Mean Platelet Volume 11.1 fL (9.1-12.4)
[2020-11-06 14:32] LABS: Platelet Count 45 K/mm3 (150-400)
--- NOTE | 2020-11-06 16:25 | NUR ---
reported to recieving nurse.
--- NOTE | 2020-11-06 16:39 | NUR ---
CARE ASSUMPTION PATIENT LYING IN BED CALM. PATIENT A/OX4. PATIENT REPORTS NO CHEST PAIN OR SOB AT THIS TIME. VSS. SPO2 >90% ON 4L NC. TELE SR. PATIENT HAS DIFFICULTY USING BEDSIDE URINAL AND NEEDS ASSITANCE. CALL LIGHT WITHIN REACH AND BED IN LOWEST POSITION. WILL CONTINUE TO MONITOR AND PROVIDE CARE.
--- NOTE | 2020-11-06 17:54 | NUR ---
SHIFT SUMMARY PATIENT A/OX4. SPO2 >90% ON 4L NC. TELE SR @93. PATIENT REPORTS A HEADACHE THAT WAS AT A 6/10. PATIENT RECEIVE PAIN MED PER EMAR. UPON REASSESSMENT PATIENT REPORTS PAIN AT 4/10. PATIENT REPORTS NO SOB OR CHEST PAIN. NO ACUTE CHANGES. CALL LIGHT WITHIN REACH. WILL CONTINUE TO MONITOR AND PROVIDE CARE UNTIL HAND OFF WITH NEXT SHIFT.
[2020-11-06 18:49] LABS: Hematocrit 22.3 % (37.0-53.0); Hemoglobin 7.5 g/dL (13.5-17.5); Mean Platelet Volume 10.1 fL (9.1-12.4)
[2020-11-06 20:03] LABS: Hematocrit 22.5 % (37.0-53.0); Hemoglobin 7.5 g/dL (13.5-17.5); Mean Corpuscular HGB 31.5 pg (26.0-34.0); Mean Corpuscular HGB Conc 33.3 g/dL (31.5-36.5); Mean Corpuscular Volume 95 fL (80-100); Mean Platelet Volume 12.5 fL (9.1-12.4); NRBC ABSOLUTE 4.58 K/mm3 (0.00-0.02); NRBC Auto 61.2 /100 WBC (0.0-0.2); RDW Coefficient Variation 21.2 % (11.7-14.2); RDW Standard Deviation 63.7 fL (35.1-46.3); Red Blood Cell Count 2.38 M/mm3 (4.30-5.90); White Blood Cell Count 7.48 K/mm3 (4.00-11.30)
[2020-11-06 20:25] LABS: Platelet Count 40 K/mm3 (150-400)
[2020-11-06 20:26] LABS: Platelet Count 42 K/mm3 (150-400)
[2020-11-06 20:50] LABS: BAND PERCENT MAN 7 % (0-8); BASOPHILS ABSOLUTE MAN 0.07 K/mm3 (0.00-0.23); BASOPHILS PERCENT MAN 1 % (0-2); EOSINOPHILS PERCENT MAN 0 % (0-6); LYMPHOCYTES ABSOLUTE MAN 3.81 K/mm3 (0.84-5.20); LYMPHOCYTES PERCENT MAN 51 % (21-46); METAMYELOCYTE ABSOLUTE MAN 0.14 K/mm3 (0.00-0.00); METAMYELOCYTE PERCENT MAN 2 % (0-0); MONOCYTES PERCENT MAN 0 % (4-13); MYELOCYTE ABSOLUTE MAN 0.22 K/mm3 (0.00-0.00); MYELOCYTE PERCENT MAN 3 % (0-0); NEUTROPHILS ABSOLUTE MAN 3.21 K/mm3 (1.96-9.15); SEG NEUTROPHILS PERCENT MAN 36 % (41-73); TOTAL CELLS COUNTED 100
[2020-11-07 04:26] LABS: Hematocrit 22.1 % (37.0-53.0); Hemoglobin 7.5 g/dL (13.5-17.5); Mean Corpuscular HGB 32.2 pg (26.0-34.0); Mean Corpuscular HGB Conc 33.9 g/dL (31.5-36.5); Mean Corpuscular Volume 95 fL (80-100); Mean Platelet Volume 12.4 fL (9.1-12.4); NRBC ABSOLUTE 2.75 K/mm3 (0.00-0.02); NRBC Auto 44.3 /100 WBC (0.0-0.2); RDW Coefficient Variation 21.5 % (11.7-14.2); RDW Standard Deviation 64.9 fL (35.1-46.3); Red Blood Cell Count 2.33 M/mm3 (4.30-5.90); White Blood Cell Count 6.21 K/mm3 (4.00-11.30)
[2020-11-07 04:43] LABS: Platelet Count 35 K/mm3 (150-400)
[2020-11-07 04:53] LABS: Anion Gap 12 mmol/L (6-16); Blood Urea Nitrogen 38 mg/dL (8-24); Bun/Creatinine Ratio 43.4 (12.0-20.0); CO2, Blood 18 mmol/L (21-32); Calcium, Blood 7.5 mg/dL (8.5-10.1); Chloride, Blood 105 mmol/L (98-108); Creatinine, Blood 0.88 mg/dL (0.60-1.20); Glomerular Filtration Rate >60 (60-); Glucose, Blood 167 mg/dL (70-99); Potassium, Blood 4.1 mmol/L (3.5-5.5); Sodium, Blood 135 mmol/L (136-145)
[2020-11-07 05:24] LABS: BAND PERCENT MAN 9 % (0-8); BASOPHILS ABSOLUTE MAN 0.12 K/mm3 (0.00-0.23); BASOPHILS PERCENT MAN 2 % (0-2); EOSINOPHILS ABSOLUTE MAN 0.06 K/mm3 (0.00-0.68); EOSINOPHILS PERCENT MAN 1 % (0-6); LYMPHOCYTES ABSOLUTE MAN 2.54 K/mm3 (0.84-5.20); LYMPHOCYTES PERCENT MAN 41 % (21-46); MONOCYTES ABSOLUTE MAN 0.62 K/mm3 (0.16-1.47); MONOCYTES PERCENT MAN 10 % (4-13); MYELOCYTE ABSOLUTE MAN 0.12 K/mm3 (0.00-0.00); MYELOCYTE PERCENT MAN 2 % (0-0); NEUTROPHILS ABSOLUTE MAN 2.73 K/mm3 (1.96-9.15); SEG NEUTROPHILS PERCENT MAN 35 % (41-73); TOTAL CELLS COUNTED 100
--- NOTE | 2020-11-07 05:30 | NUR ---
Shift Summary Pt has slept for the majority of the night. Pt c/o back pain that the pt stated was r/t stiffness, treated per EMAR. While administering medication, pt began to get anxious and RR increased to 35 and pt c/o SOB. PRN IV lorazepam was given and pt stated relief of SOB within 10 minutes, RR fell to 25 and stabilized. Pt has had no further incidences of SOB or pain. Pt has had bouts of confusion when disturbed from sleep for care activities. Pt has had multiple incidences of urinary incontinence. No other acute changes noted.
[2020-11-07 08:27] LABS: CHOL/HDL RATIO 6.1; Cholesterol 92 mg/dL (50-200); HDL Cholesterol 15 mg/dL (>39); LDL/HDL RATIO 2.7; Low Density Lipoprotein Chol 40 mg/dL (0-110); Triglycerides 185 mg/dL (30-160); Very Low Density Lipoprot Chol 37 mg/dL (6-32)
--- NOTE | 2020-11-07 13:03 | NUR ---
PT CONFUSED AND AGITATED, PT CONTINUOUSLY REMOVING NASAL CANNULA AND MONITORING EQUIPMENT. CONDOM CATH REPALCED AND PT HAS ALSO REMOVED CONDOM CATH.
[2020-11-07 15:45] LABS: Hematocrit 22.1 % (37.0-53.0); Hemoglobin 7.4 g/dL (13.5-17.5); Mean Platelet Volume 12.7 fL (9.1-12.4)
[2020-11-07 15:49] LABS: Platelet Count 30 K/mm3 (150-400)
--- NOTE | 2020-11-07 17:16 | NUR ---
PT CONFUSED, AGITATED, PT CONSTANTLY REMOVING MONITORING EQUIPMENT. PT IS ORIENTED TO SELF AND PRESIDENT. PT DENIES CP T/O THIS SHIFT BUT DOES C/O BACK PAIN. PT IS TREATED FOR PAIN AND AXIETY T/O THE DAY. PT WITH SOB AND WHEEZING WITH MOVEMENT, OTHERWISE LUNGS ARE CLEAR BUT DIM. VSS. SPO2 96% ON 2L NC. PT WILL NOT GO FOR ANGIO THIS WEEKEND MAY CONTINUE TO EAT
[2020-11-07 19:18] LABS: Hematocrit 22.8 % (37.0-53.0); Hemoglobin 7.5 g/dL (13.5-17.5); Mean Platelet Volume 10.9 fL (9.1-12.4)
[2020-11-07 20:01] LABS: Platelet Count 28 K/mm3 (150-400)
[2020-11-08 03:51] LABS: Hematocrit 23.5 % (37.0-53.0); Hemoglobin 7.7 g/dL (13.5-17.5)
[2020-11-08 03:59] LABS: Platelet Count 24 K/mm3 (150-400)
--- NOTE | 2020-11-08 07:06 | NUR ---
SHIFT SUMMARY PT A/OX2-3 AT TIMES CONFUSED/FORGETFUL. CAN BE RUDE WITH STAFF. CALLS OUT WHEN NEEDS HELP. ON 2L NC, O2 ABOVE 92%. ON TELE CAN BE NSR TO NST IN THE LOW 100'S. HAS A COMDOM CATH ON; DARK CHRISTIANO CLOUDY URINE. DID NOT WANT A BREAF ON. FREQUENT CHECKS SINCE DOES NOT USE THE CALL LIGHT. VSS STABLE PT. KEPT TAKING OFF BP CUFF AND WRONG SIZE WAS BEING USED AND SHOWED LOW BP'S WITH LOW MAP; INACURATE. CHARGE NURSE AND MD WAS NOTIFIED OF CRITICAL PLATELET LEVEL; NO TRANSFUSSION. TROPONIN TRENDING DOWN. FREQUENT REPOSITIONING. FREQUENTLY REMOVES TELE AND BP CUFF. PT. DID NOT WANT SCD'S, WAS UPSET, EDUCATED AND WAS TALKING LOUDLY TO TAKE IT OFF. HAS CHRONIC BACK PAIN AND WAS GIVEN MEDS PER EMAR/ORDERS. PT STABLE AT THE TIME. WILL CONT WITH PLAN OF CARE.
--- NOTE | 2020-11-08 16:17 | NUR ---
PT IVs REMOVED AND PRESSURE DRESSED. S/O EDUCATED ABOUT NEW MEDICATIONS DOSAGE CAHNGES AND EXPRESSED UDERSTANDING OF THE CHANGES. PT WAS SET UP WITH [facility] FOR TRANSFER W/C AND BSC THAT WAS PICKED UP BY DAUGHTER THAT WILL BE DELIVERED TO HIS HOME
== END 2020-11-08 16:05 | disposition home health service (06) | DRG 840 ==
LOC: ER 20:30 → SURS 22:14 → PCU 11-07 15:20
PROVIDERS: Family Medicine; Internal Medicine; Student in an Organized Health Care Education/Training Program; ADMIT Internal Medicine
PROC: 30233N1 Transfusion of Nonautologous Red Blood Cells into Peripheral Vein, Percutaneous Approach (ICD-10-PCS; principal; 2020-11-05)
PROC: 30233R1 Transfusion of Nonautologous Platelets into Peripheral Vein, Percutaneous Approach (ICD-10-PCS; 2020-11-05)
DX: C95.90 Leukemia, unspecified not having achieved remission (principal); I21.4 Non-ST elevation (NSTEMI) myocardial infarction; D69.59 Other secondary thrombocytopenia; I25.10 Atherosclerotic heart disease of native coronary artery without angina pectoris; E78.5 Hyperlipidemia, unspecified; E66.01 Morbid (severe) obesity due to excess calories; I35.0 Nonrheumatic aortic (valve) stenosis; I10 Essential (primary) hypertension; D63.0 Anemia in neoplastic disease; E11.9 Type 2 diabetes mellitus without complications; Z92.21 Personal history of antineoplastic chemotherapy; Z79.01 Long term (current) use of anticoagulants; Z98.890 Other specified postprocedural states; Z95.5 Presence of coronary angioplasty implant and graft; Z79.899 Other long term (current) drug therapy; Z79.84 Long term (current) use of oral hypoglycemic drugs; Z79.02 Long term (current) use of antithrombotics/antiplatelets; Z95.1 Presence of aortocoronary bypass graft; Z68.37 Body mass index [BMI] 37.0-37.9, adult
CPT/HCPCS: 36415; 36430; 71045; 71260; 80048; 80053; 80061; 82550; 82947; 83036; 83690; 83880; 84484; 85014; 85018; 85025; 85049; 85379; 86850; 86900; 86901; 86923; 93005; 93010; 93308; 93321; 94640; 94762; 97110; 97162; 99285-25; A9270; J1940; J2060; J2270; J3010; J7030; P9016; P9035; Q9967; U0004

== ENCOUNTER 2020-11-14 10:58 | Day surgery (SDC) | payer MEDICARE ==
[2020-11-11 17:43] LABS: Hematocrit 23.7 % (37.0-53.0); Hemoglobin 7.7 g/dL (13.5-17.5); Mean Corpuscular HGB 32.1 pg (26.0-34.0); Mean Corpuscular HGB Conc 32.5 g/dL (31.5-36.5); Mean Corpuscular Volume 99 fL (80-100); NRBC ABSOLUTE 2.89 K/mm3 (0.00-0.02); NRBC Auto 51.1 /100 WBC (0.0-0.2); RDW Coefficient Variation 23.5 % (11.7-14.2); RDW Standard Deviation 76.5 fL (35.1-46.3); White Blood Cell Count 5.66 K/mm3 (4.00-11.30)
[2020-11-11 18:21] LABS: Platelet Count 18 K/mm3 (150-400)
[2020-11-11 19:23] LABS: BAND PERCENT MAN 3 % (0-8); BASOPHILS PERCENT MAN 0 % (0-2); BLASTS PERCENT MAN 2 % (0-0); EOSINOPHILS PERCENT MAN 0 % (0-6); LYMPHOCYTES % ATYPICAL MANUAL 1 % (0-0); LYMPHOCYTES ABSOLUTE MAN 2.54 K/mm3 (0.84-5.20); LYMPHOCYTES PERCENT MAN 44 % (21-46); METAMYELOCYTE ABSOLUTE MAN 0.05 K/mm3 (0.00-0.00); METAMYELOCYTE PERCENT MAN 1 % (0-0); MONOCYTES ABSOLUTE MAN 0.28 K/mm3 (0.16-1.47); MONOCYTES PERCENT MAN 5 % (4-13); MYELOCYTE ABSOLUTE MAN 0.11 K/mm3 (0.00-0.00); MYELOCYTE PERCENT MAN 2 % (0-0); NEUTROPHILS ABSOLUTE MAN 2.54 K/mm3 (1.96-9.15); SEG NEUTROPHILS PERCENT MAN 42 % (41-73); TOTAL CELLS COUNTED 100
[~2020-11-14 10:58] MED LIST changes: +LORAZEPAM0.5 MG PO; +NITR.4SL SL
== END 2020-11-14 18:25 | disposition home or self-care (01) ==
LOC: ATC 10:58
PROVIDERS: Internal Medicine Hematology & Oncology
DX: D46.9 Myelodysplastic syndrome, unspecified (principal); E11.9 Type 2 diabetes mellitus without complications; I25.10 Atherosclerotic heart disease of native coronary artery without angina pectoris; Z95.5 Presence of coronary angioplasty implant and graft; Z87.891 Personal history of nicotine dependence; Z79.84 Long term (current) use of oral hypoglycemic drugs; Z79.899 Other long term (current) drug therapy
CPT/HCPCS: 36415; 36430; 85025; 86850; 86900; 86901; 86923; J7050; P9016; P9053